=== PATIENT | female | born 1950 | race Caucasian/White ===

== ENCOUNTER → 2018-09-24 | Day surgery (SDC) | payer MEDICARE, OTHER ==
[~2018-09-24] MED LIST: ACETAMINOPHEN325 M1 PO; ALENDRONATE SOD70 MG; AMLODIPINE BESY10 MG PO; ASPIRIN81 MG; BUPIVACAINE 0.5%/EPI 30 ML SDV INJ ONE; BUPIVACAINE HCL 0.5% INJ 30 ML VIAL INJ ONE; CALCIUM 600 +1 EACH PO; CEFAZOLIN SOD 1 GM/NS 50ML 0 ML IV ONE; CEFAZOLIN SOD 1 GM/NS 50ML 50 ML IV ONE; CETIRIZINE HCL10 MG PO; CHLORASEPTIC177 M1 PO; CLARITIN10 M2 PO; CLONIDINE HCL0.1 MG PO; COUMADIN2.5 MG PO; DAILY MULTIPLE1 EACH PO; DEXAMETHASONE SOD PHOS INJ 4 MG/ML VIAL ONE; DILANTIN50 MG; DOCUSATE SODIU100 MG PO; DULCOLAX5 MG PO; FENTANYL CITRATE/PF 100MCG/2 ML INJ ONE; FERROUS SULFAT325 MG PO; FOLIC ACID1 MG PO; GLYCOPYRROLATE INJ 1MG/ 5 ML SYR ONE; GUAIFENESI100 MG/5 M; ISOSORBIDE MONO30 MG PO; KEPPRA500 MG PO; LEVOTHYROXINE25 MCG PO; LIDOCAINE HCL 2% LOCAL INJ 5 ML SDV VIAL INJ ONE; LIPITOR20 MG PO; LISINOPRIL10 MG PO; MAGNESIUM ALUMIN1 GM; MILK OF MA2400 MG/10; MONTELUKAST SOD10 MG PO; NAPROXEN250 MG PO; NEOSTIGMINE 1 MG/ML 10ML VIAL ONE; OMEGA 3 1,0001 EACH; ONDANSETRON HCL INJ 2MG/ML 2ML 2 MG/ML VIAL ONE; PANTOPRAZOLE SO40 MG PO; PEPTO-BISM262 MG/15; PLAVIX75 MG PO; PROPOFOL IV EMULSION 10 MG/ML 20 ML VIAL ONE; SEVOFLURANE INHAL SOLN 250 ML PEN BTL ONE; SIMETHICONE80 MG PO; TESSALON PERLE100 MG; ZOFRAN4 MG PO; nitroquick
[2018-09-24 12:38] VITALS: BP 135/78
--- NOTE | 2018-09-24 16:18 | Operative Report ---
DATE OF PROCEDURE: 09/24/2018 SURGEON: Darius Kim MD [facility] OPER[facility] HELPER: Justin Odell PA-C. PREOPERATIVE DIAGNOSIS: Mechanical complications pertaining to internal fixation of right ankle. POSTOPERATIVE DIAGNOSIS: Mechanical complications pertaining to internal fixation of right ankle. PROCEDURE: Hardware removal of right ankle. INDICATIONS: The patient is a medically frail 67-year-old lady, who is essentially a nonambulator. She is status post an open reduction and internal fixation of her right ankle where the bones have long since healed. The hardware is somewhat prominent and is bothering her. The risks and benefits of a hardware removal have been discussed. She states she understands and wishes to proceed. PROCEDURE IN DETAIL: The patient was brought to the operating room and placed under general anesthetic. Her right lower extremity was prepped and draped in a sterile manner. A preoperative time-out was performed. The extremity was exsanguinated and a proximal tourniquet was briefly inflated to 300 mmHg. The previous lateral incision was opened. The hardware was carefully exposed. Each screw and the plate were carefully removed. The anterior to posterior lag screw was removed. The lateral aspect of the fibula was gently debrided of fibrinous around the screw holes. The wound was irrigated and closed with subcuticular Vicryl and nylon stitches. 7 mL of 0.5% Marcaine without epinephrine was injected around the incision. A very small incision was made over the medial aspect. The medial malleolar screw was easily removed. This wound was closed with Steri-Strips. A sterile bandage was applied. The patient was transported to the recovery room in stable condition. There was no blood loss and all needle and sponge counts were correct. Darius Kim MD DR/MIYA /[id number]
== END | disposition home or self-care (01) ==
LOC: OR 08:09
PROVIDERS: ATTEND Specialist
DX: T84.196A Other mechanical complication of internal fixation device of bone of right lower leg, initial encounter (principal); I69.351 Hemiplegia and hemiparesis following cerebral infarction affecting right dominant side; E03.9 Hypothyroidism, unspecified; I25.10 Atherosclerotic heart disease of native coronary artery without angina pectoris; R05 Cough; I10 Essential (primary) hypertension; R56.9 Unspecified convulsions; Y83.8 Other surgical procedures as the cause of abnormal reaction of the patient, or of later complication, without mention of misadventure at the time of the procedure; Z88.2 Allergy status to sulfonamides; Z91.041 Radiographic dye allergy status; Z91.013 Allergy to seafood; Z88.6 Allergy status to analgesic agent; Z79.02 Long term (current) use of antithrombotics/antiplatelets; Z79.82 Long term (current) use of aspirin; Z95.5 Presence of coronary angioplasty implant and graft; Z87.891 Personal history of nicotine dependence
CPT/HCPCS: 20680; J0690; J1100; J2001; J2405; J2704; J3490; 76000; J2710

== ENCOUNTER 2021-04-06 19:44 | Inpatient (IN) | payer MEDICARE, OTHER ==
[~2021-04-06] VITALS: Ht 157.5 cm; Wt 78.5 kg
[~2021-04-06 19:44] MED LIST changes: -FENTANYL CITRATE/PF 100MCG/2 ML INJ ONE; -LIDOCAINE HCL 2% LOCAL INJ 5 ML SDV VIAL INJ ONE; -METOCLOPRAMIDE HCL 10 MG/2ML VIAL ONE; -PROPOFOL IV EMULSION 10 MG/ML 20 ML VIAL ONE
[2021-04-06] MEDS ORDERED: SODIUM CHLORIDE 0.9% 1000ML 1,000 ML IV ONE ×2 (20:00)
[2021-04-06] MEDS ORDERED: SODIUM CHLORIDE 0.9% 1000ML 2,000 ML ONE (20:01)
[2021-04-06] MEDS ORDERED: SODIUM CHLORIDE 0.9% 1000ML 1,000 ML ONE (20:07)
[2021-04-06] MEDS ORDERED: ONDANSETRON HCL INJ 2MG/ML 2ML 2 MG/ML VIAL IV STA (20:11)
[2021-04-06] MEDS ORDERED: ONDANSETRON HCL INJ 2MG/ML 2ML 2 MG/ML VIAL ONE (20:19)
[2021-04-06 20:20] LABS: BASOPHILS # (AUTO) 0.1 (0.0-0.1); BASOPHILS % 0.2 % (0.0-1.0); HEMATOCRIT 42.4 % (34.2-44.1); HEMOGLOBIN 13.7 g/dL (12.0-16.0); LYMPHOCYTES # (AUTO) 1.2 (1.0-3.2); LYMPHOCYTES % 4.1 % (18.0-39.1); MEAN CORPUSCULAR HEMOGLOBIN 30.9 pg (28-32); MEAN CORPUSCULAR HGB CONC 32.3 g/dL (31-35); MEAN CORPUSCULAR VOLUME 95.7 fL (81-99); MONOCYTES # (AUTO) 2.6 (0.2-0.8); MONOCYTES % 8.8 % (4.4-11.3); NEUTROPHILS # (AUTO) 25.1 (2.1-6.9); PLATELET COUNT 502 x10e3/uL (140-360); RED BLOOD COUNT 4.43 x10e6/uL (3.6-5.1); RED CELL DISTRIBUTION WIDTH 13.1 % (11.7-14.4)
[2021-04-06 20:23] LABS: CLARITY,URINE HAZY (CLEAR); COLOR,URINE AMBER (YELLOW); KETONES,URINE TRACE (NEGATIVE); LEUKOCYTE ESTERASE ,URINE NEGATIVE (NEGATIVE); NITRITE,URINE NEGATIVE (NEGATIVE); PROTEIN,URINE DIPSTICK TRACE (NEGATIVE); URINE UROBILINOGEN 1 mg/dL (0.2 - 1)
[2021-04-06 20:28] LABS: BACTERIA,URINE MANY /HPF
[2021-04-06] MEDS ORDERED: CEFEPIME 2 GM in SODIUM CHLORIDE 0.9% 100 ML IV ONE (20:45)
[2021-04-06] MEDS ORDERED: NOREPINEPHRINE 8 MG/D5W 250 ML 250 ML ONE (21:13)
[2021-04-06] MEDS: NOREPINEPHRINE 8 MG/D5W 250 ML 250 ML IV SCH (21:14)
[2021-04-06 21:25] LABS: ALBUMIN 2.1 g/dL (3.5-5.0); ALBUMIN/GLOBULIN RATIO 0.8 (0.8-2.0); ANION GAP 14.1 mmol/L (8-16); CALCIUM 7.7 mg/dL (8.4-10.2); CREATININE, SERUM 1.25 mg/dL (0.57-1.11); POTASSIUM 4.1 mmol/L (3.5-5.1)
[2021-04-06] MEDS: METRONIDAZOLE 500MG/NS 100ML 100 ML IV SCH (21:45)
[2021-04-06] MEDS ORDERED: ONDANSETRON HCL INJ 2MG/ML 2ML 2 MG/ML VIAL IV PRN (22:00)
[2021-04-06] MEDS ORDERED: SODIUM CHLORIDE 0.9% 1000ML 1,000 ML IV SCH (22:00)
[2021-04-07] VITALS (24 sets, daily range): BP systolic 84–145; BP diastolic 30–84
[2021-04-07] MEDS ORDERED: VASOPRESSIN INJ 20 UNIT/ML VIAL ONE (00:13)
[2021-04-07] MEDS ORDERED: BENZONATATE 100 MG CAP PO PRN (00:15)
[2021-04-07] MEDS ORDERED: SIMETHICONE 80 MG CHEW PO PRN (00:15)
[2021-04-07] MEDS ORDERED: LIDOCAINE 4% PATCH TP PRN (00:15)
[2021-04-07] MEDS ORDERED: DEXTROSE 5% 100ML 100 ML IV ONE (00:15)
[2021-04-07] MEDS ORDERED: TRAMADOL HCL 50 MG TAB PO PRN (00:15)
[2021-04-07] MEDS ORDERED: POTASSIUM CHLORIDE 20 MEQ TAB CR PO PRN (00:15)
[2021-04-07] MEDS ORDERED: DIPHENHYDRAMINE HCL 25 MG CAP PO PRN (00:15)
[2021-04-07] MEDS ORDERED: DEXTROSE 50% SYRINGE 50 ML IV PRN (00:15)
[2021-04-07] MEDS ORDERED: Vancomycin IV 1 GM in SODIUM CHLORIDE 0.9% 250ML 250 ML IV ONE (00:15)
[2021-04-07] MEDS ORDERED: DOCUSATE SODIUM 100 MG CAP PO PRN (00:15)
[2021-04-07] MEDS ORDERED: VASOPRESSIN 60 UNIT in DEXTROSE 5% 50ML 57 ML IV PRN (00:15)
[2021-04-07] MEDS ORDERED: Vancomycin IV 1 GM in SODIUM CHLORIDE 0.9% 250ML 250 ML IV SCH (00:30)
[2021-04-07] MEDS ORDERED: LACTATED RINGER'S 1,000 ML INJ ONE (00:45)
[2021-04-07] MEDS: Vancomycin IV 1 GM in SODIUM CHLORIDE 0.9% 250ML 250 ML IV SCH ×2 (00:53→08:08)
[2021-04-07] MEDS: HYDROCORTISONE SOD SUCCINATE 100 MG VIAL IV SCH ×4 (00:56→17:00)
[2021-04-07 01:21] LABS: BASOPHILS # (AUTO) 0.1 (0.0-0.1); BASOPHILS % 0.2 % (0.0-1.0); HEMATOCRIT 37.8 % (34.2-44.1); HEMOGLOBIN 11.8 g/dL (12.0-16.0); LYMPHOCYTES # (AUTO) 1.3 (1.0-3.2); MEAN CORPUSCULAR HEMOGLOBIN 30.5 pg (28-32); MEAN CORPUSCULAR HGB CONC 31.2 g/dL (31-35); MEAN CORPUSCULAR VOLUME 97.7 fL (81-99); MONOCYTES # (AUTO) 2.9 (0.2-0.8); MONOCYTES % 9.1 % (4.4-11.3); NEUTROPHILS # (AUTO) 27.5 (2.1-6.9); NEUTROPHILS % 85.8 % (38.7-80.0); PLATELET COUNT 540 x10e3/uL (140-360); RED BLOOD COUNT 3.87 x10e6/uL (3.6-5.1); RED CELL DISTRIBUTION WIDTH 12.9 % (11.7-14.4)
[2021-04-07] MEDS: CEFEPIME 2 GM in SODIUM CHLORIDE 0.9% 100 ML IV SCH ×3 (05:59→21:41)
[2021-04-07] MEDS: METRONIDAZOLE 500MG/NS 100ML 100 ML IV SCH ×3 (05:59→12:00)
[2021-04-07] MEDS: Pantoprazole IV 40 MG in SODIUM CHLORIDE 0.9% 50ML 50 ML IV SCH ×5 (05:59→21:41)
[2021-04-07 06:30] LABS: BASOPHILS # (AUTO) 0.1 (0.0-0.1); BASOPHILS % 0.2 % (0.0-1.0); HEMATOCRIT 34.8 % (34.2-44.1); HEMOGLOBIN 10.8 g/dL (12.0-16.0); LYMPHOCYTES # (AUTO) 1.1 (1.0-3.2); MEAN CORPUSCULAR HEMOGLOBIN 30.1 pg (28-32); MEAN CORPUSCULAR VOLUME 96.9 fL (81-99); MONOCYTES # (AUTO) 1.9 (0.2-0.8); MONOCYTES % 6.6 % (4.4-11.3); NEUTROPHILS # (AUTO) 25.3 (2.1-6.9); NEUTROPHILS % 88.6 % (38.7-80.0); PLATELET COUNT 473 x10e3/uL (140-360); RED BLOOD COUNT 3.59 x10e6/uL (3.6-5.1); RED CELL DISTRIBUTION WIDTH 12.9 % (11.7-14.4)
[2021-04-07 06:35] LABS: ALBUMIN/GLOBULIN RATIO 0.9 (0.8-2.0); ANION GAP 12.7 mmol/L (8-16); CREATININE, SERUM 0.93 mg/dL (0.57-1.11); POTASSIUM 3.7 mmol/L (3.5-5.1)
[2021-04-07 06:43] LABS: CALCIUM 6.9 mg/dL (8.4-10.2)
[2021-04-07 06:47] LABS: CREATINE KINASE MB 5.2 ng/mL (0-5.0)
[2021-04-07] MEDS ORDERED: LEVOTHYROXINE SODIUM 25 MCG TABLET PO SCH (07:30)
[2021-04-07] MEDS ORDERED: PANTOPRAZOLE SOD 40 MG TABEC PO SCH (07:30)
[2021-04-07] MEDS: SENNOSIDES 8.6 MG TAB PO SCH ×2 (08:05→16:16)
[2021-04-07 08:10] LABS: LYMPHOCYTES % (MANUAL) 1 % (19-48); MONOCYTES % (MANUAL) 2 % (3.4-9.0); NEUTROPHILS % (MANUAL) 97 % (40-74); PLATELET ESTIMATE SLIGHTLY INCREASED; PLATELET MORPHOLOGY COMMENT NORMAL; RBC MORPHOLOGY COMMENT NORMAL
[2021-04-07] MEDS ORDERED: Vancomycin IV 1 GM VIAL ONE (08:12)
[2021-04-07] MEDS ORDERED: ATORVASTATIN 20 MG TAB PO SCH (09:00)
[2021-04-07] MEDS ORDERED: PHENYTOIN 50 MG TAB PO SCH (09:00)
[2021-04-07] MEDS: NOREPINEPHRINE 8 MG/D5W 250 ML 250 ML IV SCH ×2 (12:07→18:43)
[2021-04-07] MEDS: PHENYTOIN 100 MG/4 ML CUP PO SCH ×2 (12:14→16:16)
[2021-04-07 15:02] LABS: CREATINE KINASE MB 5.4 ng/mL (0-5.0)
[2021-04-07] MEDS: METRONIDAZOLE 500 MG TAB PO SCH (17:00)
[2021-04-07] MEDS ORDERED: ALBUMIN 25% 25GM 100ML 0.25 GM/ML BTL IV ONE (18:00)
[2021-04-07] MEDS: LEVETIRACETAM 500 MG TAB PO SCH (21:00)
[2021-04-07] MEDS: MIRTAZAPINE 15 MG TAB PO SCH (21:00)
[2021-04-07] MEDS: FOLIC ACID 1 MG TAB PO SCH (21:00)
[2021-04-07] MEDS: ATORVASTATIN 20 MG TAB PO SCH (21:41)
[2021-04-08] VITALS (25 sets, daily range): BP systolic 95–153; BP diastolic 52–78
[2021-04-08] MEDS: METRONIDAZOLE 500 MG TAB PO SCH ×4 (01:10→17:09)
[2021-04-08] MEDS: HYDROCORTISONE SOD SUCCINATE 100 MG VIAL IV SCH ×4 (01:10→17:09)
[2021-04-08] MEDS: Pantoprazole IV 40 MG in SODIUM CHLORIDE 0.9% 50ML 50 ML IV SCH ×5 (02:58→21:58)
[2021-04-08] MEDS: CEFEPIME 2 GM in SODIUM CHLORIDE 0.9% 100 ML IV SCH ×3 (06:03→21:58)
[2021-04-08] MEDS: LEVOTHYROXINE SODIUM 25 MCG TABLET PO SCH (06:03)
[2021-04-08 06:21] LABS: BASOPHILS % 0.1 % (0.0-1.0); HEMATOCRIT 25.7 % (34.2-44.1); LYMPHOCYTES # (AUTO) 0.6 (1.0-3.2); MEAN CORPUSCULAR HEMOGLOBIN 30.3 pg (28-32); MEAN CORPUSCULAR HGB CONC 31.1 g/dL (31-35); MEAN CORPUSCULAR VOLUME 97.3 fL (81-99); MONOCYTES # (AUTO) 0.6 (0.2-0.8); MONOCYTES % 6.2 % (4.4-11.3); NEUTROPHILS # (AUTO) 8.9 (2.1-6.9); NEUTROPHILS % 86.7 % (38.7-80.0); PLATELET COUNT 218 x10e3/uL (140-360); RED BLOOD COUNT 2.64 x10e6/uL (3.6-5.1); RED CELL DISTRIBUTION WIDTH 12.8 % (11.7-14.4)
[2021-04-08 06:31] LABS: ALBUMIN/GLOBULIN RATIO 1.9 (0.8-2.0); ANION GAP 10.4 mmol/L (8-16); CREATININE, SERUM 0.68 mg/dL (0.57-1.11); POTASSIUM 3.4 mmol/L (3.5-5.1)
[2021-04-08 06:34] LABS: CALCIUM 6.9 mg/dL (8.4-10.2)
[2021-04-08] MEDS: ONDANSETRON HCL INJ 2MG/ML 2ML 2 MG/ML VIAL IV PRN (07:00)
[2021-04-08] MEDS: SENNOSIDES 8.6 MG TAB PO SCH ×2 (08:25→17:09)
[2021-04-08] MEDS: LEVETIRACETAM 500 MG TAB PO SCH ×3 (08:25→21:57)
[2021-04-08] MEDS: Vancomycin IV 1 GM in SODIUM CHLORIDE 0.9% 250ML 250 ML IV SCH (08:25)
[2021-04-08] MEDS: PHENYTOIN 100 MG/4 ML CUP PO SCH ×2 (08:25→17:09)
[2021-04-08] MEDS: DEXTROSE 5%/0.45% SOD CHL 1,000 ML IV SCH (16:06)
[2021-04-08] MEDS: MIRTAZAPINE 15 MG TAB PO SCH (21:00)
[2021-04-08] MEDS: FOLIC ACID 1 MG TAB PO SCH (21:00)
[2021-04-08] MEDS: NOREPINEPHRINE 8 MG/D5W 250 ML 250 ML IV SCH (21:15)
[2021-04-08] MEDS: ATORVASTATIN 20 MG TAB PO SCH (21:57)
[2021-04-09] VITALS (24 sets, daily range): BP systolic 88–151; BP diastolic 35–83
[2021-04-09] MEDS: METRONIDAZOLE 500 MG TAB PO SCH ×4 (01:45→17:03)
[2021-04-09] MEDS: HYDROCORTISONE SOD SUCCINATE 100 MG VIAL IV SCH ×3 (01:45→23:39)
[2021-04-09] MEDS: Pantoprazole IV 40 MG in SODIUM CHLORIDE 0.9% 50ML 50 ML IV SCH ×5 (03:25→23:39)
[2021-04-09] MEDS: DEXTROSE 5%/0.45% SOD CHL 1,000 ML IV SCH ×2 (06:00→17:08)
[2021-04-09] MEDS: CEFEPIME 2 GM in SODIUM CHLORIDE 0.9% 100 ML IV SCH ×3 (06:00→23:39)
[2021-04-09] MEDS: LEVOTHYROXINE SODIUM 25 MCG TABLET PO SCH (06:00)
[2021-04-09 07:36] LABS: BASOPHILS % 0.2 % (0.0-1.0); EOSINOPHILS % 0.1 % (0.0-6.0); HEMATOCRIT 28.5 % (34.2-44.1); HEMOGLOBIN 8.8 g/dL (12.0-16.0); LYMPHOCYTES # (AUTO) 0.8 (1.0-3.2); MEAN CORPUSCULAR HEMOGLOBIN 30.4 pg (28-32); MEAN CORPUSCULAR HGB CONC 30.9 g/dL (31-35); MEAN CORPUSCULAR VOLUME 98.6 fL (81-99); MONOCYTES # (AUTO) 0.7 (0.2-0.8); MONOCYTES % 5.9 % (4.4-11.3); NEUTROPHILS # (AUTO) 9.9 (2.1-6.9); NEUTROPHILS % 85.8 % (38.7-80.0); PLATELET COUNT 217 x10e3/uL (140-360); RED BLOOD COUNT 2.89 x10e6/uL (3.6-5.1); RED CELL DISTRIBUTION WIDTH 12.7 % (11.7-14.4)
[2021-04-09 07:59] LABS: ALBUMIN 2.6 g/dL (3.5-5.0); ALBUMIN/GLOBULIN RATIO 1.5 (0.8-2.0); ANION GAP 10.3 mmol/L (8-16); CREATININE, SERUM 0.63 mg/dL (0.57-1.11); POTASSIUM 3.3 mmol/L (3.5-5.1)
[2021-04-09 08:01] LABS: CALCIUM 6.5 mg/dL (8.4-10.2)
[2021-04-09] MEDS: PHENYTOIN 100 MG/4 ML CUP PO SCH ×4 (08:19→17:02)
[2021-04-09] MEDS: LEVETIRACETAM 500 MG TAB PO SCH ×3 (08:19→23:39)
[2021-04-09] MEDS: SENNOSIDES 8.6 MG TAB PO SCH ×3 (08:19→17:02)
[2021-04-09] MEDS: ONDANSETRON HCL INJ 2MG/ML 2ML 2 MG/ML VIAL IV PRN (08:36)
[2021-04-09] MEDS ORDERED: KCL 20 MEQ PACKET/ ORAL SOLN NG NR (14:15)
[2021-04-09] MEDS: ACETAMINOPHEN 325 MG TAB PO PRN (17:11)
[2021-04-09] MEDS: FOLIC ACID 1 MG TAB PO SCH (23:39)
[2021-04-09] MEDS: MIRTAZAPINE 15 MG TAB PO SCH (23:39)
[2021-04-09] MEDS: ATORVASTATIN 20 MG TAB PO SCH (23:39)
[2021-04-10] VITALS (24 sets, daily range): BP systolic 115–153; BP diastolic 53–83
[2021-04-10] MEDS: METRONIDAZOLE 500 MG TAB PO SCH ×4 (01:05→17:09)
[2021-04-10] MEDS: Pantoprazole IV 40 MG in SODIUM CHLORIDE 0.9% 50ML 50 ML IV SCH ×4 (03:27→17:17)
[2021-04-10 05:33] LABS: BASOPHILS % 0.3 % (0.0-1.0); EOSINOPHILS # (AUTO) 0.1 (0.0-0.4); EOSINOPHILS % 0.8 % (0.0-6.0); HEMATOCRIT 29.4 % (34.2-44.1); HEMOGLOBIN 9.3 g/dL (12.0-16.0); LYMPHOCYTES % 9.4 % (18.0-39.1); MEAN CORPUSCULAR HEMOGLOBIN 30.3 pg (28-32); MEAN CORPUSCULAR HGB CONC 31.6 g/dL (31-35); MEAN CORPUSCULAR VOLUME 95.8 fL (81-99); MONOCYTES # (AUTO) 0.7 (0.2-0.8); NEUTROPHILS # (AUTO) 8.3 (2.1-6.9); NEUTROPHILS % 81.2 % (38.7-80.0); PLATELET COUNT 203 x10e3/uL (140-360); RED BLOOD COUNT 3.07 x10e6/uL (3.6-5.1); RED CELL DISTRIBUTION WIDTH 12.9 % (11.7-14.4)
[2021-04-10 05:52] LABS: ALBUMIN 2.4 g/dL (3.5-5.0); ALBUMIN/GLOBULIN RATIO 1.5 (0.8-2.0); ANION GAP 9.3 mmol/L (8-16); CREATININE, SERUM 0.64 mg/dL (0.57-1.11); POTASSIUM 3.3 mmol/L (3.5-5.1)
[2021-04-10 05:59] LABS: CALCIUM 6.4 mg/dL (8.4-10.2)
[2021-04-10] MEDS: LEVOTHYROXINE SODIUM 25 MCG TABLET PO SCH (06:09)
[2021-04-10] MEDS: CEFEPIME 2 GM in SODIUM CHLORIDE 0.9% 100 ML IV SCH ×3 (06:09→22:51)
[2021-04-10] MEDS: DEXTROSE 5%/0.45% SOD CHL 1,000 ML IV SCH (07:28)
[2021-04-10] MEDS: SENNOSIDES 8.6 MG TAB PO SCH ×2 (08:32→16:41)
[2021-04-10] MEDS: PHENYTOIN 100 MG/4 ML CUP PO SCH ×2 (08:33→16:41)
[2021-04-10] MEDS: HYDROCORTISONE SOD SUCCINATE 100 MG VIAL IV SCH ×2 (08:33→22:50)
[2021-04-10] MEDS: LEVETIRACETAM 500 MG TAB PO SCH ×3 (08:33→22:50)
[2021-04-10] MEDS ORDERED: POTASSIUM CHLORIDE 20MEQ/100ML 200 ML IV ONE (10:45)
[2021-04-10] MEDS ORDERED: CALCIUM GLUCONATE 10% INJ 13.95 MEQ in SODIUM CHLORIDE 0.9% 100 ML 100 ML IV ONE (14:00)
[2021-04-10] MEDS: ACETAMINOPHEN 325 MG TAB PO PRN (14:03)
[2021-04-10] MEDS: ATORVASTATIN 20 MG TAB PO SCH (22:50)
[2021-04-10] MEDS: MIRTAZAPINE 15 MG TAB PO SCH (22:50)
[2021-04-10] MEDS: FOLIC ACID 1 MG TAB PO SCH (22:50)
[2021-04-11] VITALS (13 sets, daily range): BP systolic 129–149; BP diastolic 79–107
[2021-04-11] MEDS: METRONIDAZOLE 500 MG TAB PO SCH ×4 (00:45→18:37)
[2021-04-11] MEDS: Pantoprazole IV 40 MG in SODIUM CHLORIDE 0.9% 50ML 50 ML IV SCH ×5 (00:45→22:44)
[2021-04-11 05:51] LABS: ANION GAP 14.4 mmol/L (8-16); CALCIUM 7.3 mg/dL (8.4-10.2); CREATININE, SERUM 0.68 mg/dL (0.57-1.11); POTASSIUM 4.4 mmol/L (3.5-5.1)
[2021-04-11 06:10] LABS: MAGNESIUM 1.5 MG/DL (1.3-2.1)
[2021-04-11] MEDS: LEVOTHYROXINE SODIUM 25 MCG TABLET PO SCH (06:16)
[2021-04-11] MEDS: CEFEPIME 2 GM in SODIUM CHLORIDE 0.9% 100 ML IV SCH (06:16)
[2021-04-11 06:24] LABS: CALCIUM IONIZED 1.1 mmol/L (1.09-1.30)
[2021-04-11 06:32] LABS: BASOPHILS # (AUTO) 0.1 (0.0-0.1); BASOPHILS % 0.4 % (0.0-1.0); EOSINOPHILS # (AUTO) 0.3 (0.0-0.4); HEMATOCRIT 33.6 % (34.2-44.1); HEMOGLOBIN 10.5 g/dL (12.0-16.0); LYMPHOCYTES # (AUTO) 1.5 (1.0-3.2); LYMPHOCYTES % 11.1 % (18.0-39.1); MEAN CORPUSCULAR HEMOGLOBIN 30.3 pg (28-32); MEAN CORPUSCULAR HGB CONC 31.3 g/dL (31-35); MEAN CORPUSCULAR VOLUME 96.8 fL (81-99); MONOCYTES # (AUTO) 1.2 (0.2-0.8); MONOCYTES % 9.1 % (4.4-11.3); NEUTROPHILS # (AUTO) 10.1 (2.1-6.9); NEUTROPHILS % 75.2 % (38.7-80.0); PLATELET COUNT 255 x10e3/uL (140-360); RED BLOOD COUNT 3.47 x10e6/uL (3.6-5.1); RED CELL DISTRIBUTION WIDTH 12.9 % (11.7-14.4)
[2021-04-11 06:54] LABS: PHOSPHORUS < 0.7 MG/DL (2.3-4.7)
[2021-04-11] MEDS: PHENYTOIN 100 MG/4 ML CUP PO SCH ×2 (09:05→17:02)
[2021-04-11] MEDS: LEVETIRACETAM 500 MG TAB PO SCH ×2 (09:05→17:02)
[2021-04-11] MEDS: SENNOSIDES 8.6 MG TAB PO SCH ×2 (09:05→17:00)
[2021-04-11] MEDS: HYDROCORTISONE SOD SUCCINATE 100 MG VIAL IV SCH (09:05)
[2021-04-11] MEDS: ATORVASTATIN 20 MG TAB NG SCH (21:46)
[2021-04-11] MEDS: FOLIC ACID 1 MG TAB NG SCH (21:47)
[2021-04-11] MEDS: MIRTAZAPINE 15 MG TAB NG SCH (21:47)
[2021-04-11] MEDS: LEVETIRACETAM 500 MG TAB NG SCH (22:26)
[2021-04-12] VITALS (9 sets, daily range): BP systolic 106–144; BP diastolic 51–89
[2021-04-12] MEDS: METRONIDAZOLE 500 MG TAB NG SCH ×2 (02:03→06:54)
[2021-04-12] MEDS: ALBUTEROL/IPRATROPIUM 3 ML NEB NEB PRN ×2 (02:22→11:25)
[2021-04-12] MEDS: Pantoprazole IV 40 MG in SODIUM CHLORIDE 0.9% 50ML 50 ML IV SCH ×2 (03:51→09:03)
[2021-04-12] MEDS: LEVOTHYROXINE SODIUM 25 MCG TABLET NG SCH (06:54)
[2021-04-12] MEDS: SENNOSIDES 8.6 MG TAB PO SCH ×2 (09:00→16:58)
[2021-04-12] MEDS: PHENYTOIN 100 MG/4 ML CUP PO SCH ×2 (09:03→16:44)
[2021-04-12] MEDS: LEVETIRACETAM 500 MG TAB NG SCH ×3 (09:03→20:48)
[2021-04-12] MEDS ORDERED: METHYLPREDNISOLONE SOD SUCC 40 MG/ML VIAL 1ML IV NR (11:45)
[2021-04-12] MEDS ORDERED: FUROSEMIDE INJ 10 MG/ML 10 ML VIAL IV NR (11:45)
[2021-04-12 13:23] LABS: ANION GAP 11.4 mmol/L (8-16); BLOOD UREA NITROGEN 18 mg/dL (7-26); BUN/CREATININE RATIO 29 (6-25); CALCIUM 7.1 mg/dL (8.4-10.2); CARBON DIOXIDE 24 mmol/L (22-29); CHLORIDE 108 mmol/L (98-107); CREATININE, SERUM 0.63 mg/dL (0.57-1.11); EST GLOMERULAR FILTRATION RATE 93 ML/MIN (60-); GLUCOSE 234 mg/dL (74-118); MAGNESIUM 1.3 MG/DL (1.3-2.1); POTASSIUM 3.4 mmol/L (3.5-5.1); SODIUM 140 mmol/L (136-145)
[2021-04-12 13:25] LABS: PHOSPHORUS < 0.7 MG/DL (2.3-4.7)
[2021-04-12] MEDS ORDERED: SODIUM CHLORIDE 0.9% IV ONE (14:30)
[2021-04-12] MEDS ORDERED: [UNRECOGNIZED DRUG - OTHER] IV ONE (14:30)
[2021-04-12] MEDS: FUROSEMIDE INJ 10 MG/ML 4 ML VIAL IV SCH ×2 (17:04→23:52)
[2021-04-12] MEDS: FOLIC ACID 1 MG TAB NG SCH (20:47)
[2021-04-12] MEDS: ATORVASTATIN 20 MG TAB NG SCH (20:48)
[2021-04-12] MEDS: MIRTAZAPINE 15 MG TAB NG SCH (20:48)
[2021-04-13] VITALS (7 sets, daily range): BP systolic 109–127; BP diastolic 60–78
[2021-04-13] MEDS: ACETAMINOPHEN 325 MG TAB PO PRN (00:11)
[2021-04-13] MEDS: FUROSEMIDE INJ 10 MG/ML 4 ML VIAL IV SCH ×2 (05:46→12:29)
[2021-04-13] MEDS: LEVOTHYROXINE SODIUM 25 MCG TABLET NG SCH (05:46)
[2021-04-13 06:26] LABS: BASOPHILS # (AUTO) 0.1 (0.0-0.1); BASOPHILS % 0.5 % (0.0-1.0); EOSINOPHILS % 7.1 % (0.0-6.0); HEMATOCRIT 31.8 % (34.2-44.1); HEMOGLOBIN 10.4 g/dL (12.0-16.0); LYMPHOCYTES # (AUTO) 2.4 (1.0-3.2); LYMPHOCYTES % 17.5 % (18.0-39.1); MEAN CORPUSCULAR HEMOGLOBIN 30.1 pg (28-32); MEAN CORPUSCULAR HGB CONC 32.7 g/dL (31-35); MEAN CORPUSCULAR VOLUME 92.2 fL (81-99); MONOCYTES # (AUTO) 1.9 (0.2-0.8); MONOCYTES % 13.5 % (4.4-11.3); NEUTROPHILS # (AUTO) 7.9 (2.1-6.9); NEUTROPHILS % 57.5 % (38.7-80.0); PLATELET COUNT 269 x10e3/uL (140-360); RED BLOOD COUNT 3.45 x10e6/uL (3.6-5.1); RED CELL DISTRIBUTION WIDTH 13.2 % (11.7-14.4)
[2021-04-13 07:05] LABS: ANION GAP 14.2 mmol/L (8-16); CREATININE, SERUM 0.71 mg/dL (0.57-1.11); MAGNESIUM 1.3 MG/DL (1.3-2.1); POTASSIUM 3.2 mmol/L (3.5-5.1)
[2021-04-13 07:10] LABS: CALCIUM 6.8 mg/dL (8.4-10.2)
[2021-04-13 08:36] LABS: PHOSPHORUS 1.8 MG/DL (2.3-4.7)
[2021-04-13] MEDS ORDERED: POTASSIUM CHLORIDE 20 MEQ TAB CR PO ONE (09:00)
[2021-04-13] MEDS: SENNOSIDES 8.6 MG TAB PO SCH ×2 (09:41→17:00)
[2021-04-13] MEDS: LEVETIRACETAM 500 MG TAB NG SCH ×3 (09:41→21:19)
[2021-04-13] MEDS: PHENYTOIN 100 MG/4 ML CUP PO SCH ×2 (09:41→17:00)
[2021-04-13] MEDS ORDERED: CALCIUM GLUCONATE 10% INJ 9.3 MEQ in SODIUM CHLORIDE 0.9% 100 ML 100 ML IV ONE (15:15)
[2021-04-13] MEDS: FOLIC ACID 1 MG TAB NG SCH (21:19)
[2021-04-13] MEDS: MIRTAZAPINE 15 MG TAB NG SCH (21:19)
[2021-04-13] MEDS: ATORVASTATIN 20 MG TAB NG SCH (21:19)
[2021-04-14 01:02] VITALS: BP 130/76
[2021-04-14] MEDS: LEVOTHYROXINE SODIUM 25 MCG TABLET NG SCH (05:30)
[2021-04-14 06:05] VITALS: BP 125/79
[2021-04-14 06:46] LABS: ANION GAP 16.2 mmol/L (8-16); CALCIUM 7.2 mg/dL (8.4-10.2); CREATININE, SERUM 0.67 mg/dL (0.57-1.11); POTASSIUM 4.2 mmol/L (3.5-5.1)
[2021-04-14] MEDS: PHENYTOIN 100 MG/4 ML CUP PO SCH ×2 (08:44→17:06)
[2021-04-14] MEDS: LEVETIRACETAM 500 MG TAB NG SCH ×3 (08:44→20:52)
[2021-04-14] MEDS: SENNOSIDES 8.6 MG TAB PO SCH ×2 (08:44→17:00)
[2021-04-14 08:50] LABS: BASOPHILS # (AUTO) 0.1 (0.0-0.1); BASOPHILS % 0.8 % (0.0-1.0); EOSINOPHILS % 6.7 % (0.0-6.0); HEMOGLOBIN 10.5 g/dL (12.0-16.0); MEAN CORPUSCULAR HEMOGLOBIN 30.7 pg (28-32); MEAN CORPUSCULAR HGB CONC 31.8 g/dL (31-35); MEAN CORPUSCULAR VOLUME 96.5 fL (81-99); MONOCYTES # (AUTO) 1.7 (0.2-0.8); MONOCYTES % 11.7 % (4.4-11.3); NEUTROPHILS # (AUTO) 9.3 (2.1-6.9); NEUTROPHILS % 63.8 % (38.7-80.0); PLATELET COUNT 281 x10e3/uL (140-360); RED BLOOD COUNT 3.42 x10e6/uL (3.6-5.1); RED CELL DISTRIBUTION WIDTH 13.6 % (11.7-14.4)
[2021-04-14 09:00] VITALS: BP 125/79
[2021-04-14] MEDS: PHOSPHORUS 250 MG TAB PO SCH ×3 (14:00→20:53)
[2021-04-14] MEDS: MEGACE 400MG/ 10ML CUP PO SCH (14:30)
[2021-04-14] MEDS: ACETAMINOPHEN 325 MG TAB PO PRN (17:38)
[2021-04-14 20:10] VITALS: BP 135/59
[2021-04-14 20:45] VITALS: BP 135/59
[2021-04-14] MEDS: FOLIC ACID 1 MG TAB NG SCH (20:52)
[2021-04-14] MEDS: ATORVASTATIN 20 MG TAB NG SCH (20:53)
[2021-04-14] MEDS: MIRTAZAPINE 15 MG TAB NG SCH (20:53)
[2021-04-15 05:06] VITALS: BP 128/69
[2021-04-15] MEDS: LEVOTHYROXINE SODIUM 25 MCG TABLET NG SCH (05:06)
[2021-04-15 05:33] LABS: BASOPHILS # (AUTO) 0.1 (0.0-0.1); BASOPHILS % 0.5 % (0.0-1.0); EOSINOPHILS # (AUTO) 0.6 (0.0-0.4); HEMATOCRIT 32.2 % (34.2-44.1); HEMOGLOBIN 10.4 g/dL (12.0-16.0); LYMPHOCYTES # (AUTO) 1.4 (1.0-3.2); LYMPHOCYTES % 11.3 % (18.0-39.1); MEAN CORPUSCULAR HEMOGLOBIN 30.3 pg (28-32); MEAN CORPUSCULAR HGB CONC 32.3 g/dL (31-35); MEAN CORPUSCULAR VOLUME 93.9 fL (81-99); MONOCYTES # (AUTO) 1.2 (0.2-0.8); MONOCYTES % 9.6 % (4.4-11.3); NEUTROPHILS # (AUTO) 9.1 (2.1-6.9); NEUTROPHILS % 71.3 % (38.7-80.0); PLATELET COUNT 278 x10e3/uL (140-360); RED BLOOD COUNT 3.43 x10e6/uL (3.6-5.1); RED CELL DISTRIBUTION WIDTH 13.9 % (11.7-14.4)
[2021-04-15 05:47] LABS: CALCIUM 7.3 mg/dL (8.4-10.2); CREATININE, SERUM 0.6 mg/dL (0.57-1.11); MAGNESIUM 1.5 MG/DL (1.3-2.1); PHOSPHORUS 3.4 MG/DL (2.3-4.7)
[2021-04-15 08:16] VITALS: BP 139/68
[2021-04-15 09:00] VITALS: BP 139/68
[2021-04-15] MEDS: MEGACE 400MG/ 10ML CUP PO SCH (09:29)
[2021-04-15] MEDS: LEVETIRACETAM 500 MG TAB NG SCH ×2 (09:29→15:44)
[2021-04-15] MEDS: PHOSPHORUS 250 MG TAB PO SCH ×2 (09:29→17:16)
[2021-04-15] MEDS: SENNOSIDES 8.6 MG TAB PO SCH ×2 (09:29→17:16)
[2021-04-15] MEDS: PHENYTOIN 100 MG/4 ML CUP PO SCH ×2 (09:29→17:16)
[2021-04-15 11:57] VITALS: BP 121/47
[2021-04-15 16:04] VITALS: BP 111/80
== END 2021-04-15 17:41 | DRG 871 ==
LOC: ER 19:51 → ERHOLD 21:59 → ICU 23:02 → IMCU 04-11 16:31 → MED/SURG3 04-12 18:03
PROVIDERS: ADMIT Internal Medicine; ATTEND Internal Medicine
PROC: 3E053XZ Introduction of Vasopressor into Peripheral Artery, Percutaneous Approach (ICD-10-PCS; principal; 2021-04-07)
DX: A41.51 Sepsis due to Escherichia coli [E. coli] (principal); R65.21 Severe sepsis with septic shock; J69.0 Pneumonitis due to inhalation of food and vomit; N39.0 Urinary tract infection, site not specified; E44.0 Moderate protein-calorie malnutrition; G82.20 Paraplegia, unspecified; I69.351 Hemiplegia and hemiparesis following cerebral infarction affecting right dominant side; K22.10 Ulcer of esophagus without bleeding; K29.70 Gastritis, unspecified, without bleeding; G40.909 Epilepsy, unspecified, not intractable, without status epilepticus; Z68.31 Body mass index [BMI] 31.0-31.9, adult; G35 Multiple sclerosis; F03.90 Unspecified dementia, unspecified severity, without behavioral disturbance, psychotic disturbance, mood disturbance, and anxiety; J44.9 Chronic obstructive pulmonary disease, unspecified; E03.9 Hypothyroidism, unspecified; N20.0 Calculus of kidney; Z90.49 Acquired absence of other specified parts of digestive tract; D64.9 Anemia, unspecified; D50.0 Iron deficiency anemia secondary to blood loss (chronic); R13.12 Dysphagia, oropharyngeal phase; R62.7 Adult failure to thrive; B96.20 Unspecified Escherichia coli [E. coli] as the cause of diseases classified elsewhere; B96.1 Klebsiella pneumoniae [K. pneumoniae] as the cause of diseases classified elsewhere; Z51.5 Encounter for palliative care; R06.03 Acute respiratory distress; A41.89 Other specified sepsis; Z88.2 Allergy status to sulfonamides; Z91.013 Allergy to seafood
CPT/HCPCS: 36415; 70450; 71045; 74018; 74176; 74230; 80048; 80053; 80185; 81001; 82550; 82553; 82948; 83605; 83735; 84100; 84484; 85025; 87040; 87086; 87186; 93005; 93306; 94640; 94799; 99251; 99284; J0456; J0610; J0692; J1720; J1940; J2405; J2920; J3370; J3480; J7030; J7050; J7121; P9047

== ENCOUNTER → 2021-04-06 | Day surgery (SDC) | payer MEDICARE, OTHER ==
[~2021-04-06] MED LIST changes: -ALENDRONATE SOD70 MG; +ALENDRONATE SOD70 MG PO; -ASPIRIN81 MG; +ASPIRIN81 MG PO; +AZO CRANBERRY1 EACH PO; +BROVANA15 MCG/2 M NEB; -BUPIVACAINE 0.5%/EPI 30 ML SDV INJ ONE; -BUPIVACAINE HCL 0.5% INJ 30 ML VIAL INJ ONE; +CALCIUM 600 +1 EAC4 PO; -CEFAZOLIN SOD 1 GM/NS 50ML 0 ML IV ONE; -CEFAZOLIN SOD 1 GM/NS 50ML 50 ML IV ONE; +COUGH SYRU100 MG/5 M PO; +CRANBERRY450 M2 PO; -DEXAMETHASONE SOD PHOS INJ 4 MG/ML VIAL ONE; +DICYCLOMINE HCL10 MG PO; +DILANTIN50 MG PO; -GLYCOPYRROLATE INJ 1MG/ 5 ML SYR ONE; +LACTULOSE20 GM/30 M PO; +MAGNESIUM CITR296 ML PO; +MAGNESIUM-ALUM360 ML PO; +METOCLOPRAMIDE HCL 10 MG/2ML VIAL ONE; -MILK OF MA2400 MG/10; +MILK OF MA2400 MG/10 PO; +MIRALAX17 GM PO; -NEOSTIGMINE 1 MG/ML 10ML VIAL ONE; +NYSTATIN-TRIAMC15 GM TOP; -ONDANSETRON HCL INJ 2MG/ML 2ML 2 MG/ML VIAL ONE; +PEPCID20 MG PO; +PROMETHAZINE HC25 M1 PR; +REMERON15 MG PO; +SENNA8.6 MG PO; -SEVOFLURANE INHAL SOLN 250 ML PEN BTL ONE; +VITAMIN B COMP1 EACH PO; +[UNRECOGNIZED DRUG - OTHER] PO; -nitroquick; +nitroquick SL
[2021-04-06 15:15] VITALS: BP 107/55
== END | disposition home or self-care (01) ==
LOC: OR 09:03
PROVIDERS: ATTEND Internal Medicine Gastroenterology
DX: K29.70 Gastritis, unspecified, without bleeding (principal); K31.7 Polyp of stomach and duodenum; K22.10 Ulcer of esophagus without bleeding; K22.89 Other specified disease of esophagus; K21.9 Gastro-esophageal reflux disease without esophagitis; K59.09 Other constipation; Z87.19 Personal history of other diseases of the digestive system; K76.0 Fatty (change of) liver, not elsewhere classified; R63.4 Abnormal weight loss; I69.351 Hemiplegia and hemiparesis following cerebral infarction affecting right dominant side; F03.90 Unspecified dementia, unspecified severity, without behavioral disturbance, psychotic disturbance, mood disturbance, and anxiety; I10 Essential (primary) hypertension; E03.9 Hypothyroidism, unspecified; J45.909 Unspecified asthma, uncomplicated; E78.5 Hyperlipidemia, unspecified; R56.9 Unspecified convulsions; Z88.2 Allergy status to sulfonamides; Z91.041 Radiographic dye allergy status; Z91.013 Allergy to seafood; Z20.822 Contact with and (suspected) exposure to COVID-19; Z79.02 Long term (current) use of antithrombotics/antiplatelets; Z79.899 Other long term (current) drug therapy; Z68.30 Body mass index [BMI] 30.0-30.9, adult
CPT/HCPCS: 36415; 43239; 43450; 82948; C9113; J2001; J2704; J2765; J3010; U0002